=== PATIENT | male | born 1980 | race African-American/Black ===

== ENCOUNTER 2019-04-12 21:18 | Emergency (ER) | payer SELFPAY ==
[~2019-04-12] VITALS: Ht 167.6 cm; Wt 92.1 kg
--- NOTE | 2019-04-12 22:02 | NUR ---
pt improving after meds given, pt states he feels better and less tightness to upper lip,,
== END 2019-04-12 22:25 | disposition left against medical advice (07) ==
LOC: FSED 21:18
DX: S83.511A Sprain of anterior cruciate ligament of right knee, initial encounter (principal); S80.01XA Contusion of right knee, initial encounter; W01.0XXA Fall on same level from slipping, tripping and stumbling without subsequent striking against object, initial encounter; Y93.67 Activity, basketball; Y92.310 Basketball court as the place of occurrence of the external cause

== ENCOUNTER 2019-08-20 11:17 | Emergency (ER) | payer OTHER ==
[~2019-08-20] VITALS: Ht 177.8 cm; Wt 93.6 kg
== END 2019-08-20 11:54 | disposition home or self-care (01) ==
LOC: FSED 11:17
DX: R50.9 Fever, unspecified (principal); R05 Cough; J11.1 Influenza due to unidentified influenza virus with other respiratory manifestations
CPT/HCPCS: 99282